=== PATIENT | female | born 1990 | race Caucasian/White ===

== ENCOUNTER 2017-02-17 09:15 | Emergency (ER) | payer OTHER ==
[2017-02-17 09:28] VITALS: RESP 18
[2017-02-17] MEDS ORDERED: AMOXICILLIN/CLAVULANATE POT 875/125 MG TAB PO ONE (09:39)
[2017-02-17] MEDS ORDERED: IBUPROFEN 600 MG TAB PO ONE (09:39)
[2017-02-17] MEDS ORDERED: TDAP ADULT 0.5 ML INJ (BOOSTRIX) IM ONE (09:40)
--- NOTE | 2017-02-17 10:22 | EDPHY ---
H & P Time Seen by Provider: 02/17/17 09:26 HPI/ROS: CHIEF COMPLAINT: Cat bite HISTORY OF PRESENT ILLNESS: This is a 26-year-old female presents emergency department reporting cat bite which occurred yesterday at 1 o'clock in the afternoon (18 hours ago.) Patient was walking her dog in [place], along [place], and noticed a cat in the doorway of an apartment. Patient's dog began to growl at the cat. Patient tried to walk around, however, she was bit by the cat. Patient has multiple scratches on her right lower extremity as well as 1 puncture wound bite kareem. Patient was initially evaluated at [facility] was referred to the emergency department for consideration rabies vaccination. Patient has had no fever although she does report aching discomfort in the leg. Patient's tetanus status is not up-to-date. Patient was otherwise well prior to the event. She does not have any chronic medical illness and is not on immunosuppressants. REVIEW OF SYSTEMS: Aside from elements discussed in the HPI, a comprehensive 10-point review of systems was reviewed and is negative. PAST MEDICAL HISTORY: Denies. SOCIAL HISTORY: Patient lives in [place]. She will be returning home tomorrow. GENERAL APPEARANCE: Alert, conversant, no acute distress. FOCUSED EXAM OF right lower extremity: Multiple scratches on the lower extremity which have already scabbed over. Puncture wound is present on the lateral right calf. Minimal amount of surrounding erythema. Moderate tenderness to palpation. No discharge. No overt cellulitis. Neurovascular exam: Good capillary refill, normal motor exam, normal neurologic exam. Smoking Status: Never smoked Constitutional: Initial Vital Signs Temperature (C) 37.2 C 02/17/17 09:24 Heart Rate 71 02/17/17 09:24 Respiratory Rate 18 02/17/17 09:24 Blood Pressure 122/76 H 02/17/17 09:24 O2 Sat (%) 97 02/17/17 09:24 O2 Delivery Mode Room Air Allergies/Adverse Reactions: No Known Allergies Allergy (Unverified 02/17/17 09:23) Home Medications: Medication Instructions Recorded Amoxicillin/Clavulanate Pot 875 mg PO BID #14 tab 02/17/17 [Augmentin 875 MG TAB (*)] Medical Decision Making ED Course/Re-evaluation: 1. Patient's tetanus status was updated. 2. Patient received 1st dose of Augmentin for infection control. Prescription for Augmentin 875/125 twice daily for 10 days was provided. 3. Patient received ibuprofen 600 mg for pain and inflammation. 4. Animal control, officer Lyle, had been previously contacted. Location of the cat bite incident is known to animal Control. They will attempt to locate the cat. [facility] was also contacted. Recommendations from Kristel with the [facility], after discussions with [facility], is that if the cat is unable to be located, or if there is concerned that it is a feral cat, rabies prophylaxis should be considered and most likely given. There have been documented cases of rabies in the raccoon and skunk population in that area [place], which would increase the chances that a feral cat would have contracted rabies. Patient is comfortable being discharged to follow up with Officer Lyle, from infection control. She does understand that the initiation of rabies prophylaxis is a medical urgency but not an emergency. She understands that if the CT is found, it will be quarantined for 10 days. If it does not found, she may return to the emergency department to begin rabies prophylaxis or discuss further with her primary care physician in [place]. Differential Diagnosis: Differential diagnoses for the patient's symptom complex was considered including but not limited to bite, scratch, cellulitis, laceration. - Data Points Medications Given: Discontinued Medications Amoxicillin/Clavulanate Potassium (Augmentin 875mg) 875 mg PO EDNOW ONE PRN Reason: Protocol Stop: 02/17/17 09:40 Last Admin: 02/17/17 10:04 Dose: 875 mg Diphtheria/Tetanus/Acell Pertussis (Boostrix) 0.5 ml IM .ONCE ONE Stop: 02/17/17 09:41 Last Admin: 02/17/17 10:01 Dose: 0.5 ml Ibuprofen (Motrin) 600 mg PO EDNOW ONE Stop: 02/17/17 09:40 Last Admin: 02/17/17 10:03 Dose: 600 mg Departure - Departure Disposition: Home, Routine, Self-Care Clinical Impression: Cat bite involving extremity Condition: Good Instructions: Animal Bite (ED) Additional Instructions: 1. Please take antibiotics as directed. Augmentin 875/125 2 times a day for 10 days. 2. I recommend Ibuprofen (Motrin, Advil) or Naproxen Sodium (Aleve) for pain and anti-inflammatory effects. You may take either one, but do not take both. Your dose is: Ibuprofen 600 mg every 6-8 hours with food. OR Naproxen Sodium (Aleve) 220 mg every 12 hours. 3. Please watch for signs of infection. 4. Please follow up with animal control, Officer Lyle, as discussed. The rabies prophylaxis may be started for an additional several days if needed. Referrals: NONE *PRIMARY CARE P,. [Primary Care Provider] - As per Instructions Prescriptions: Amoxicillin/Clavulanate Pot [Augmentin 875 MG TAB (*)] 875 mg PO BID #14 tab
[2017-02-17 10:40] VITALS: BP 122/62
[2017-02-17 10:55] VITALS: PULSE 72; TEMP 98; O2SAT 97
== END 2017-02-17 10:53 | disposition home or self-care (01) ==
LOC: CED 09:15
DX: S81.831A Puncture wound without foreign body, right lower leg, initial encounter (principal); Z23 Encounter for immunization; W55.01XA Bitten by cat, initial encounter; Y99.8 Other external cause status; Y93.01 Activity, walking, marching and hiking